=== PATIENT | female | born 1990 | race Two or more races ===

== ENCOUNTER 2018-03-11 08:24 | Emergency (ER) | payer OTHER ==
[~2018-03-11] VITALS: Ht 154.9 cm; Wt 45.8 kg
[2018-03-11] MEDS ORDERED: WELLBUTRIN SR200 MG (08:36)
== END 2018-03-11 15:46 | disposition home or self-care (01) ==
LOC: ER 08:24
DX: K52.9 Noninfective gastroenteritis and colitis, unspecified (principal)

== ENCOUNTER 2020-10-05 12:45 | Inpatient (IN) | payer OTHER ==
[~2020-10-05] VITALS: Ht 154.9 cm; Wt 57.6 kg
[~2020-10-05 12:45] MED LIST: WELLBUTRIN SR200 MG
[2020-10-22] MEDS ORDERED: PRENATAL TABLE1 EAC1 PO (06:55)
[2020-10-22] MEDS ORDERED: ACYCLOVIR400 MG PO (06:55)
== END 2020-10-24 11:58 | disposition home or self-care (01) | DRG 768 ==
LOC: LDR 10-22 06:42 → OB/GYN 10-22 09:47
PROVIDERS: ADMIT Obstetrics & Gynecology Maternal & Fetal Medicine; ATTEND Obstetrics & Gynecology Maternal & Fetal Medicine
PROC: 10E0XZZ Delivery of Products of Conception, External Approach (ICD-10-PCS; principal; 2020-10-22)
PROC: 0DQR0ZZ Repair Anal Sphincter, Open Approach (ICD-10-PCS; 2020-10-22)
PROC: 10907ZC Drainage of Amniotic Fluid, Therapeutic from Products of Conception, Via Natural or Artificial Opening (ICD-10-PCS; 2020-10-22)
PROC: 4A1HXFZ Monitoring of Products of Conception, Cardiac Rhythm, External Approach (ICD-10-PCS; 2020-10-22)
DX: O70.20 Third degree perineal laceration during delivery, unspecified (principal); Z37.0 Single live birth; Z3A.39 39 weeks gestation of pregnancy; Z20.822 Contact with and (suspected) exposure to COVID-19

== ENCOUNTER 2020-10-21 09:21 | Outpatient (CLI) | payer OTHER ==
[2020-10-22] MEDS ORDERED: ACYCLOVIR400 MG PO (06:55)
[2020-10-22] MEDS ORDERED: PRENATAL TABLE1 EAC1 PO (06:55)
== END 2020-10-21 10:09 | disposition home or self-care (01) ==
LOC: NST 09:21
PROVIDERS: ATTEND Obstetrics & Gynecology Maternal & Fetal Medicine
DX: Z34.83 Encounter for supervision of other normal pregnancy, third trimester (principal)

== ENCOUNTER 2023-09-05 22:25 | Outpatient (CLI) | payer OTHER ==
[~2023-09-05 22:25] MED LIST changes: +ACYCLOVIR400 MG PO; +PRENATAL TABLE1 EAC1 PO
[2023-09-05] MEDS ORDERED: WELLBUTRIN SR150 MG PO (23:08)
[2023-09-05] MEDS ORDERED: SYNTHROID75 MCG PO (23:09)
== END 2023-09-05 22:53 | disposition home or self-care (01) ==
LOC: NST 22:25
PROVIDERS: ATTEND Obstetrics & Gynecology Gynecology
DX: Z34.83 Encounter for supervision of other normal pregnancy, third trimester (principal)

== ENCOUNTER 2023-09-05 22:57 | Emergency (ER) | payer OTHER ==
[~2023-09-05] VITALS: Ht 154.9 cm; Wt 57.2 kg
[2023-09-05] MEDS ORDERED: WELLBUTRIN SR150 MG PO (23:08)
[2023-09-05] MEDS ORDERED: SYNTHROID75 MCG PO (23:09)
[2023-09-06 00:10] LABS: HEMATOCRIT 40.3 % (36.0-45.00); HEMOGLOBIN 13.4 g/dL (12.0-15.00); MEAN CELL VOLUME 80.4 fL (80.00-100.00); MEAN CORPUSCULAR HEMOGLOBIN 26.7 pg (27.00-32.0); MEAN CORPUSCULAR HGB CONC 33.3 g/dl (32.0-36.0); PLATELET COUNT 291 K/uL (150-450); RED BLOOD COUNT 5.01 M/uL (4.00-6.00); RED CELL DISTRIBUTION WIDTH 13.4 % (11.5-14.5)
[2023-09-06 00:31] LABS: ALBUMIN 3.2 gm/dL (3.4-5.0); BILIRUBIN TOTAL 0.47 mg/dL (0.3-1.2); CALCIUM 9.4 mg/dL (8.5-10.1); CREATININE SERUM 0.8 mg/dL (0.55-1.02); GFR 82.11; GLOBULINA 4.6 G/DL (2.4-3.5); POTASSIUM 3.96 mEq/L (3.5-5.1); TOTAL PROTEIN 7.8 gm/dL (6.4-8.2)
== END 2023-09-06 06:35 | disposition home or self-care (01) ==
LOC: ER 22:57
PROVIDERS: General Practice
DX: K52.9 Noninfective gastroenteritis and colitis, unspecified (principal); Z20.822 Contact with and (suspected) exposure to COVID-19

== ENCOUNTER 2023-09-24 11:07 | Outpatient (CLI) | payer OTHER ==
[~2023-09-24 11:07] MED LIST changes: +SYNTHROID75 MCG PO; +WELLBUTRIN SR150 MG PO
== END 2023-09-24 12:05 | disposition home or self-care (01) ==
LOC: NST 11:07
PROVIDERS: ATTEND Obstetrics & Gynecology Maternal & Fetal Medicine
DX: Z34.83 Encounter for supervision of other normal pregnancy, third trimester (principal); Z3A.36 36 weeks gestation of pregnancy

== ENCOUNTER 2023-09-27 09:12 | Outpatient (CLI) | payer OTHER | END 2023-09-27 10:06 | disposition home or self-care (01) | LOC: NST 09:12 | PROVIDERS: ATTEND Obstetrics & Gynecology Maternal & Fetal Medicine | DX: Z34.83 Encounter for supervision of other normal pregnancy, third trimester (principal) ==

== ENCOUNTER 2023-10-01 09:43 | Outpatient (CLI) | payer OTHER | END 2023-10-01 11:32 | disposition home or self-care (01) | LOC: NST 09:43 | PROVIDERS: ATTEND Obstetrics & Gynecology Maternal & Fetal Medicine | DX: Z34.83 Encounter for supervision of other normal pregnancy, third trimester (principal) ==

== ENCOUNTER 2023-10-04 09:20 | Outpatient (CLI) | payer OTHER | END 2023-10-04 10:09 | disposition home or self-care (01) | LOC: NST 09:20 | PROVIDERS: ATTEND Obstetrics & Gynecology Maternal & Fetal Medicine | DX: Z34.83 Encounter for supervision of other normal pregnancy, third trimester (principal) ==

== ENCOUNTER 2023-10-07 09:45 | Outpatient (CLI) | payer OTHER | END 2023-10-07 10:29 | disposition home or self-care (01) | LOC: NST 09:45 | PROVIDERS: ATTEND Obstetrics & Gynecology Maternal & Fetal Medicine | DX: Z34.83 Encounter for supervision of other normal pregnancy, third trimester (principal) ==

== ENCOUNTER 2023-10-07 14:51 | Inpatient (IN) | payer OTHER ==
[~2023-10-07] VITALS: Ht 160 cm; Wt 59.0 kg
[2023-10-08 20:05] LABS: HEMOGLOBIN 10.9 g/dL (12.0-15.00); MEAN CORPUSCULAR HEMOGLOBIN 25.8 pg (27.00-32.0); MEAN CORPUSCULAR HGB CONC 33.9 g/dl (32.0-36.0); PLATELET COUNT 227 K/uL (150-450); RED BLOOD COUNT 4.21 M/uL (4.00-6.00)
[2023-10-08 20:13] LABS: INR < 0.93; PARTIAL THROMBOPLASTIN TIME 25.4 SECONDS (22.0-34.0); PROTHROMBIN TIME 9.8 SECONDS (9.0-11.5)
[2023-10-08] MEDS ORDERED: DIPHENHYDRAMINE HCL 25 MG CAPSULE PO PRN (20:15)
[2023-10-08] MEDS ORDERED: OXYTOCIN 500 ML IV SCH (20:15)
[2023-10-08 20:20] LABS: ALBUMIN 2.8 gm/dL (3.4-5.0); BILIRUBIN TOTAL 0.34 mg/dL (0.3-1.2); CALCIUM 8.6 mg/dL (8.5-10.1); CREATININE SERUM 0.71 mg/dL (0.55-1.02); GFR 94.23; GLOBULINA 3.2 G/DL (2.4-3.5); POTASSIUM 3.75 mEq/L (3.5-5.1)
[2023-10-09] MEDS ORDERED: OXYTOCIN 500 ML IV SCH (07:00)
[2023-10-09] MEDS ORDERED: ERYTHROMYCIN BASE 1 GM TUBE OP ONE (11:42)
[2023-10-09] MEDS ORDERED: OXYTOCIN 20 UNITS/1000ML RL PIGGYBAG IV ONE (11:42)
[2023-10-09] MEDS ORDERED: CHLORHEXIDINE GLUCONATE 120 ML BOTTLE TOP ONE (11:42)
[2023-10-09] MEDS ORDERED: IBUprofen 400 MG TABLET PO PRN (12:00)
[2023-10-09] MEDS ORDERED: CHLORHEXIDINE GLUCONATE 120 ML BOTTLE TOP SCH (12:00)
[2023-10-09] MEDS ORDERED: LIDOCAINE HCL 1% 200MG/20ML VIAL IJ SCH (12:00)
[2023-10-09] MEDS ORDERED: ERYTHROMYCIN BASE 1 GM TUBE OP SCH (12:00)
[2023-10-09] MEDS ORDERED: OXYTOCIN 1,000 ML IV ONE (12:15)
[2023-10-09] MEDS ORDERED: MORPHINE SULFATE 4 MG/ML CARTRIDGE IV ONE (14:30)
[2023-10-10 06:53] LABS: HEMATOCRIT 27.8 % (36.0-45.00); HEMOGLOBIN 9.3 g/dL (12.0-15.00); MEAN CORPUSCULAR HEMOGLOBIN 25.7 pg (27.00-32.0); MEAN CORPUSCULAR HGB CONC 33.4 g/dl (32.0-36.0); PLATELET COUNT 163 K/uL (150-450); RED BLOOD COUNT 3.61 M/uL (4.00-6.00); RED CELL DISTRIBUTION WIDTH 14.9 % (11.5-14.5)
[2023-10-10] MEDS ORDERED: DOCUSATE SODIUM 100MG CAP PO SCH (17:30)
== END 2023-10-11 14:08 | disposition home or self-care (01) | DRG 807 ==
LOC: LDR 10-08 18:58 → OB/GYN 10-09 12:27 → SURH 10-20 13:57
PROVIDERS: Obstetrics & Gynecology; ADMIT Obstetrics & Gynecology Maternal & Fetal Medicine; ATTEND Obstetrics & Gynecology Maternal & Fetal Medicine
PROC: 4A1HXCZ Monitoring of Products of Conception, Cardiac Rate, External Approach (ICD-10-PCS; 2023-10-08)
PROC: 10E0XZZ Delivery of Products of Conception, External Approach (ICD-10-PCS; principal; 2023-10-09)
PROC: 0KQM0ZZ Repair Perineum Muscle, Open Approach (ICD-10-PCS; 2023-10-09)
DX: O70.1 Second degree perineal laceration during delivery (principal); Z37.0 Single live birth; Z3A.38 38 weeks gestation of pregnancy; Z20.822 Contact with and (suspected) exposure to COVID-19

== ENCOUNTER 2025-07-30 16:49 | Emergency (ER) | payer OTHER ==
[~2025-07-30] VITALS: Ht 162.6 cm; Wt 60.8 kg
[2025-07-30 17:09] VITALS: BP 126/65; O2SAT 98
[2025-07-30] MEDS ORDERED: TETANUS & DIPHTHERIA TOX,ADULT 0.5 ML VIAL IM STA (17:34)
[2025-07-30] MEDS ORDERED: KETOROLAC TROMETHAMINE 30 MG VIAL IM STA (17:34)
[2025-07-30] MEDS ORDERED: CEFTRIAXONE SODIUM 1,000 MG VIAL IM STA (17:34)
[2025-07-30] MEDS ORDERED: LIDOCAINE HCL 1% 2ML VIAL IJ STA (17:36)
[2025-07-30] MEDS ORDERED: DIPHTH,PERTUSS(ACELL),TET VAC 0.5 ML SYRINGE IM ONE (18:02)
[2025-07-30] MEDS ORDERED: LIDOCAINE HCL 1% 10ML VIAL ONE (18:02)
[2025-07-30] MEDS ORDERED: KETOROLAC TROMETHAMINE 30 MG VIAL ONE (18:02)
[2025-07-30] MEDS ORDERED: CEFTRIAXONE SODIUM 1,000 MG VIAL ONE (18:02)
== END 2025-07-30 19:28 | disposition home or self-care (01) ==
LOC: ER 16:50
DX: S51.821A Laceration with foreign body of right forearm, initial encounter (principal); W25.XXXA Contact with sharp glass, initial encounter; Y93.89 Activity, other specified; Y92.89 Other specified places as the place of occurrence of the external cause
CPT/HCPCS: 12001; 90471; 90714; J1670